=== PATIENT | female | born 1960 | race Caucasian/White ===

== ENCOUNTER → 2019-12-04 14:01 | Outpatient (CLI) | payer OTHER, SELFPAY | PROVIDERS: Visit Provider Physician Assistant | DX: N30.00 Acute cystitis without hematuria (principal) | CPT/HCPCS: 87086 ==

== ENCOUNTER → 2019-12-10 13:19 | Outpatient (CLI) | payer OTHER, SELFPAY | PROVIDERS: Visit Provider Family Medicine | DX: N39.0 Urinary tract infection, site not specified (principal) | CPT/HCPCS: 87086 ==

== ENCOUNTER → 2019-12-10 16:30 | Outpatient (CLI) | payer OTHER, SELFPAY ==
--- NOTE | 2019-12-10 16:32 | DI.RAD.S_ITS ---
PROCEDURE: XR LUMBAR SPINE MIN 4V INDICATIONS: Low back pain TECHNIQUE: 5 views of the lumbar spine were acquired. COMPARISON: None. FINDINGS: Bones: 5 nonrib-bearing vertebrae are present. There is normal bony alignment. No vertebral body compression fractures. No suspicious bony lesions. Soft tissues: Overlying bowel gas pattern is normal. No suspicious soft tissue calcifications. Oblique images: No pars defects. IMPRESSION: Minimal degenerative disc disease. No spinal or foraminal stenosis is suspected. Dictated by: Mode Clifford M.D. on 12/10/2019 at 17:07 Approved by: Mode Clifford M.D. on 12/10/2019 at 17:07
== END ==
PROVIDERS: PCP Family Medicine; Referring Provider Family Medicine; Visit Provider Family Medicine
DX: M54.5 Low back pain (principal); R10.2 Pelvic and perineal pain; N39.0 Urinary tract infection, site not specified
CPT/HCPCS: 72110; 87086